=== PATIENT | male | born 1970 | race Caucasian/White ===

== ENCOUNTER 2022-08-23 17:33 | Emergency (ER) | payer MEDICAID ==
[~2022-08-23] VITALS: Ht 185.4 cm; Wt 81.6 kg
[2022-08-23 18:00] VITALS: BP 150/80
--- NOTE | 2022-08-23 19:43 | NUR ---
TO BED 9 FROM TRIAGE
--- NOTE | 2022-08-23 19:45 | NUR ---
Patient resting in bed, A/Ox4, chest rise and fall symmetrical, no c/o pain or s/s of distress.
[2022-08-23 19:53] VITALS: BP 124/74
--- NOTE | 2022-08-23 19:55 | NUR ---
Patient discharged with v/s stable. Written and verbal after care instructions given and explained. Patient verbalized understanding. Ambulatory with steady gait. All questions addressed prior to discharge. Advised to follow up with PMD.
== END 2022-08-23 19:55 | disposition home or self-care (01) ==
LOC: MED 17:33
DX: M25.562 Pain in left knee (principal); R03.0 Elevated blood-pressure reading, without diagnosis of hypertension
CPT/HCPCS: 73562; 99283

== ENCOUNTER 2022-10-08 14:08 | Emergency (ER) | payer MEDICAID ==
[~2022-10-08] VITALS: Ht 185.4 cm; Wt 81.6 kg
[2022-10-08 14:22] VITALS: BP 133/79
--- NOTE | 2022-10-08 14:22 | NUR ---
PT AMBULATED TO ER BED 2
--- NOTE | 2022-10-08 14:27 | NUR ---
bibs for right hand pain and swellling. possible bug bite. slight drainage. no foul odor. slight redness, swelling noted. warm to touch. csmtp intact. denies n,v,fever, chills. aao x4. resp even and nonlabored. vss. ambualtory
[2022-10-08] MEDS ORDERED: IBUPROFEN 600 MG TAB PO ONE (14:40)
[2022-10-08] MEDS ORDERED: cefTRIAXone 1,000 MG in LIDOCAINE MPF 1% 2.1 ML IM ONE (14:40)
[2022-10-08] MEDS ORDERED: cefTRIAXone 1,000 MG VIAL ONE (14:43)
[2022-10-08] MEDS ORDERED: LIDOCAINE MPF 1% 5 ML ONE (14:43)
[2022-10-08] MEDS ORDERED: IBUP-2213 PO (14:46)
[2022-10-08] MEDS ORDERED: CEPH-588 PO (14:46)
[2022-10-08] MEDS ORDERED: SULF-59 PO (14:46)
[2022-10-08 15:07] VITALS: BP 128/74
== END 2022-10-08 15:08 | disposition home or self-care (01) ==
LOC: MED 14:08
DX: L03.113 Cellulitis of right upper limb (principal); R03.0 Elevated blood-pressure reading, without diagnosis of hypertension; Z79.899 Other long term (current) drug therapy
CPT/HCPCS: 96372; 99283; J0696; J2001

== ENCOUNTER 2023-01-13 05:43 | Emergency (ER) | payer MEDICAID ==
[~2023-01-13] VITALS: Ht 185.4 cm; Wt 86.2 kg
[~2023-01-13 05:43] MED LIST: CEPH-588 PO; IBUP-2213 PO; SULF-59 PO
[2023-01-13 05:50] VITALS: BP 135/76; PULSE 70; RESP 20; TEMP 98; O2SAT 100
[2023-01-13 06:03] VITALS: O2SAT 100
--- NOTE | 2023-01-13 06:12 | NUR ---
Dr. Juarez examining patient.
[2023-01-13] MEDS ORDERED: CEPH-588 PO (06:29)
[2023-01-13] MEDS ORDERED: IBUP-2213 PO (06:29)
--- NOTE | 2023-01-13 06:34 | NUR ---
Patient discharged. Written and verbal after care instructions given and explained. Patient alert, oriented and verbalized understanding of instructions. Ambulatory with steady gait. All questions addressed prior to discharge. ID band removed. Patient advised to follow up with PMD. Rx of Keflex and ibuprofen given. Patient educated on indication of medication including possible reaction and side effects. Opportunity to ask questions provided and answered.
== END 2023-01-13 06:34 | disposition home or self-care (01) ==
LOC: MED 05:43
DX: M70.31 Other bursitis of elbow, right elbow (principal); F17.210 Nicotine dependence, cigarettes, uncomplicated; Z79.899 Other long term (current) drug therapy; Z98.890 Other specified postprocedural states
CPT/HCPCS: 99283

== ENCOUNTER 2023-04-21 21:40 | Emergency (ER) | payer MEDICAID ==
[~2023-04-21] VITALS: Ht 185.4 cm; Wt 81.6 kg
[2023-04-21 22:10] VITALS: BP 130/71; PULSE 101; RESP 19; TEMP 98.3; O2SAT 100
[2023-04-21 22:54] VITALS: TEMP 98.3
[2023-04-21] MEDS ORDERED: HYDROcodone/APAP 5/325 MG 1 TAB TAB PO ONE (23:35)
[2023-04-21] MEDS ORDERED: SULFAMETH/TRIMETH DS 800/160MG 1 TAB PO ONE (23:35)
[2023-04-21] MEDS ORDERED: NAPR-54 PO (23:43)
[2023-04-21] MEDS ORDERED: SULF-59 PO (23:43)
[2023-04-22] MEDS ORDERED: BACITRACIN OINT 500 UNITS/GM PKT TP ONE ×2 (00:05→00:07)
[2023-04-22 00:15] VITALS: BP 135/84; PULSE 67; RESP 14; O2SAT 100
[2023-04-24] MEDS ORDERED: BACITRACIN OINT 500 UNITS/GM PKT TP ONE (21:10)
== END 2023-04-22 00:16 | disposition home or self-care (01) ==
LOC: MED 21:40
DX: L02.415 Cutaneous abscess of right lower limb (principal); Z79.1 Long term (current) use of non-steroidal anti-inflammatories (NSAID); Z79.2 Long term (current) use of antibiotics
CPT/HCPCS: 99283